=== PATIENT | male | born 1995 | race Caucasian/White ===

== ENCOUNTER 2017-10-01 09:18 | Emergency (ER) | END 2017-10-01 10:07 | disposition home or self-care (01) ==

== ENCOUNTER 2019-01-13 17:02 | Emergency (ER) | payer BC ==
[~2019-01-13] VITALS: Ht 157.5 cm; Wt 68.0 kg
[~2019-01-13 17:02] MED LIST: CETI10CA PO; FLUT9.9S NASAL; GUAI5SYR2 PO; IBUP-1542 PO
[2019-01-13 17:05] VITALS: BP 137/66; PULSE 66; RESP 18; Ht 157.5 cm; Wt 68.0 kg
== END 2019-01-13 18:34 | disposition home or self-care (01) ==
LOC: FTE 17:02
DX: Z04.1 Encounter for examination and observation following transport accident (principal)
CPT/HCPCS: 99282